=== PATIENT | male | born 1995 | race African-American/Black ===

== ENCOUNTER 2019-05-05 17:05 | Emergency (ER) | payer SELFPAY ==
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
== END 2019-05-05 19:58 | disposition home or self-care (01) ==
LOC: DL.ED 17:05
DX: S05.12XA Contusion of eyeball and orbital tissues, left eye, initial encounter (principal); H11.32 Conjunctival hemorrhage, left eye; W22.8XXA Striking against or struck by other objects, initial encounter
CPT/HCPCS: 99283